=== PATIENT | female | born 1975 | race Caucasian/White ===

== ENCOUNTER 2022-11-01 01:17 | Outpatient (CLI) | payer OTHER, SELFPAY ==
--- NOTE | 2022-11-01 15:15 | DI.MAMMO_ITS ---
Exam(s) MAMMO SCREENING EXAM: MAMMO SCREENING CLINICAL HISTORY: WENDY, Z12.31, PREVENTATIVE EVALUTION Z01.419. TECHNIQUE: Bilateral full field digital CC and MLO mammographic images were obtained with 3D tomosyn thesis and utilizing computer aided detection (CAD). COMPARISON: Prior mammograms were reviewed. FINDINGS: No new significant radiograph findings in left breast. In the right breast there are 4 small asymmetric densities seen on the CC 3D images, the largest ava suring 5 x 4 mm. These are located approximately 6-7 cm in from nipple on CC view. Spot compression view and ultrasound recommended. There are no malignant-appearing microcalcification groups in either breast. There is no significant architectural distortion nor skin thickening-retraction. IMPRESSION: 1. No radiographic evidence of malignancy in left breast. 2. Four small nodular densities in the right breast as described above. Spot compression CC views an d ultrasound recommended. BI-RADS Category 0 - Assessment Incomplete: Need additional imaging evaluation Breast Density - Category C - Heterogeneously dense Breast density Category C or D implies that the patient has dense breast tissue. Dense breast tissue can make it harder to find cancer on a mammogram. Dense breast tissue is also associated with an incr eased risk of breast cancer. This information about the result of the mammogram report was provided to the patient to raise their awareness. Use this report when you speak with the patient about their risks for breast cancer, which includes their family history. At that time, you may recommend additional screening tests (Ultrasoun d or MRI) as these tests may add significant information. A negative radiographic report should not delay biopsy if a dominant or clinically suspicious mass is present. Up to ten percent of cancers are not identified on mammography. A negative report may reinforce clinical impression. Adenosis and dense breasts may obscure an underlying neoplasm. False positive reports average 6 to 10%. Patient will receive a letter notifying them of these results.
== END 2022-11-01 01:37 ==
PROVIDERS: Visit Provider Advanced Practice Midwife
DX: Z12.31 Encounter for screening mammogram for malignant neoplasm of breast (principal); Z01.419 Encounter for gynecological examination (general) (routine) without abnormal findings
CPT/HCPCS: 77063; 77067

== ENCOUNTER 2022-11-11 01:39 | Outpatient (CLI) | payer OTHER, SELFPAY ==
--- NOTE | 2022-11-11 | DI.US_ITS ---
Exam(s) MG MAMMO SCREEN CALL BACK UNI US BREAST RT COMPLETE EXAM: MG MAMMO SCREEN CALL BACK UNI and U/S breast RT complete CLINICAL HISTORY: F/U MAMMO, FOUR SMALL ASYMMETRIC DENSITIES RT BREAST. TECHNIQUE: Craniocaudal and mediolateral oblique Full Field Digital Mammography views of the right b reast with Computer Aided Diagnosis followed by Tomosynthesis and right breast ultrasound. COMPARISON: Comparison is made with prior examinations. FINDINGS: Mammography/Tomosynthesis: Masses/Architectural Distortion: The nodules in the posterior central right breast are less well defi stefanie on the additional views. No suspicious nodules or areas of architectural distortion are seen. Microcalcifictions: No suspicious pleomorphic-type are seen. Skin Thickening/Nipple Retraction: None. Complete right breast US: Echotexture: Normal appearance of the glandular tissue. Shadowing: No suspicious foci. Cyst: None. Solid lesions: None seen. Ductal dilation: None. IMPRESSION: 1. No definite evidence of malignancy is noted. 2. A six-month follow-up right mammogram is requested for re-evaluation. 3. The findings were discussed with the patient on the date of the examination. BI-RADS Category 3 - 6 month - Probably Benign Finding: Recommend follow-up imaging in 6 months Breast Density - Category C - Heterogeneously dense Breast density Category C or D implies that the patient has dense breast tissue. Dense breast tissue can make it harder to find cancer on a mammogram. Dense breast tissue is also associated with an incr eased risk of breast cancer. This information about the result of the mammogram report was provided to the patient to raise their awareness. Use this report when you speak with the patient about their risks for breast cancer, which includes their family history. At that time, you may recommend additional screening tests (Ultrasoun d or MRI) as these tests may add significant information. A negative radiographic report should not delay biopsy if a dominant or clinically suspicious mass is present. Up to ten percent of cancers are not identified on mammography. A negative report may reinforce clinical impression. Adenosis and dense breasts may obscure an underlying neoplasm. False positive reports average 6 to 10%. Patient will receive a letter notifying them of these results.
== END 2022-11-11 01:59 ==
PROVIDERS: Visit Provider Advanced Practice Midwife
DX: R92.8 Other abnormal and inconclusive findings on diagnostic imaging of breast (principal); Z12.31 Encounter for screening mammogram for malignant neoplasm of breast
CPT/HCPCS: 76642; 77063; 77067

== ENCOUNTER 2023-03-22 11:55 | Outpatient (REF) | payer OTHER, SELFPAY ==
--- NOTE | 2023-03-22 11:45 | SKI_PTH ---
PATIENT: Ly Arce LOC: [facility] U#:[id number] AGE/SX: 47/F ROOM: RE03/22/[address]: Haroon Montoya : 1975 BED: DIS: 03/22/2023 SPEC #: [id number] RECD: 03/22/23 13:03 STATUS: ELPIDIO REBassem #: [id number] CARRIE: 03/22/23 11:[address]: Haroon Montoya DEPT: Surgical Specimen RECD BY: Kavya Izaguirre ENTERED: 03/22/23 13:04 SP TYPE: RILEY MEEKS DR: Nydia Valente Tissues: 1 - SKIN BIOPSY(SHAVE/PUNCH) Procedures: IMMUNOPEROXIDASE STAIN SKIN LEVEL 4 Comments: [id number]
== END 2023-03-22 11:56 | disposition home or self-care (01) ==
LOC: LBN 11:55
PROVIDERS: PCP Internal Medicine; Referring Provider Student in an Organized Health Care Education/Training Program; Visit Provider Student in an Organized Health Care Education/Training Program
DX: D22.72 Melanocytic nevi of left lower limb, including hip (principal)
CPT/HCPCS: 88305; 88361

== ENCOUNTER 2023-11-15 07:38 | Outpatient (CLI) | payer OTHER, SELFPAY ==
[2023-11-15 08:07] LABS: Hemoglobin A1C 5.8 % (<5.7)
[2023-11-15 08:22] LABS: Calculated LDL 159 mg/dL (<100); Cholesterol 245 mg/dL (<200); HDL Cholesterol 67 mg/dL (40-60); TSH 3.14 uIU/Ml (0.36-3.74); Triglyceride 95 mg/dL (<150)
== END 2023-11-15 07:39 | disposition home or self-care (01) ==
LOC: LBO 07:39
PROVIDERS: PCP Internal Medicine; Visit Provider Advanced Practice Midwife
DX: Z13.220 Encounter for screening for lipoid disorders (principal); Z13.29 Encounter for screening for other suspected endocrine disorder
CPT/HCPCS: 36415; 80061; 83036; 84443

== ENCOUNTER → 2023-11-23 02:54 | Outpatient (CLI) | payer OTHER, SELFPAY ==
--- NOTE | 2023-11-23 | DI.MAMMO_ITS ---
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 COMPARISON: 2017 through 2022 FINDINGS: The breasts are composed of heterogeneously dense fibroglandular densities, Breast Density category C . No suspicious masses or suspicious microcalcifications are seen. No skin thickening or abnormal axillary lymph nodes are seen. There has been no significant change from prior exams. IMPRESSION: BI-RADS Category 1, Negative mammogram. Yearly screening mammography is recommended. Breast Density Category C, heterogeneously Dense. The mammogram demonstrates the patient's breast tissue is dense. Dense breast tissue is very common a nd is not abnormal but dense breast tissue can make it harder to find cancer on a mammogram. Also, de nse breast tissue may increase breast cancer risk. This information about the result of the mammogram report was provided to the patient to raise their awareness. Use this report when you speak with the patient about their risks for breast cancer, which includes their family history. At that time, you may recommend additional screening tests (Ultrasound or MRI) as they might be useful based on their r isk. A negative radiographic report should not delay biopsy if a dominant or clinically suspicious mass is present. Up to ten percent of cancers are not identified on mammography. A negative report may reinforce clinical impression. Adenosis and dense breasts may obscure an underlying neoplasm. False positive reports average 6 to 10%.
== END ==
PROVIDERS: PCP Internal Medicine; Visit Provider Advanced Practice Midwife
DX: Z12.31 Encounter for screening mammogram for malignant neoplasm of breast (principal); R92.323 Mammographic fibroglandular density, bilateral breasts
CPT/HCPCS: 77063; 77067

== ENCOUNTER 2024-05-08 01:40 | Outpatient (CLI) | payer OTHER, SELFPAY ==
[2024-05-08] MEDS: Gadoterate meglumine 20 ML VIAL 19 ML IVP (09:16)
[2024-05-08] MEDS: Normal Saline - Diluent 50 ML VIAL 25 ML IJ (09:17)
--- NOTE | 2024-05-08 10:00 | DI.MRI_ITS ---
Exam(s) MR ABDOMEN WO/W EXAM: MR ABDOMEN WO/W CLINICAL HISTORY: Subcapsular splenic lesion, D73.89, characterization prior to embolization TECHNIQUE: Multiplanar multisequence MRI of the Abdomen was performed. CONTRAST MATERIAL: IV Contrast: mL of Dotarem contrast administered. COMPARISON: CT CT ABDOMEN PELVIS W from 03/20/2024 FINDINGS: Exam somewhat limited by motion. Liver: Unremarkable. Pancreas: Unremarkable. Gallbladder and Bile Ducts: Unremarkable. Adrenals: Unremarkable. Kidneys: Unremarkable. Spleen: Normal size. 2 centimeter high T2 signal lesion at the medial border of the spleen, subcapsu lar location. The lesion is difficult to visualize on T1 weighted images. Postcontrast images show no hypervascularity. delayed images show filling with contrast. The findings likely represent a he mangioma. Aorta: Unremarkable. Soft Tissues: Unremarkable. Bone: Unremarkable. Lymph Nodes: Unremarkable. Lung bases: Unremarkable. Stomach and bowel: Unremarkable. Peritoneal cavity: Unremarkable. No evidence of ascites. Bowel: No evidence of obstruction. Appendix normal. IMPRESSION: 2 centimeter splenic lesion likely represents a hemangioma. It is not hypervascular. DATA REPOSITORY:
== END 2024-05-08 02:00 ==
PROVIDERS: PCP Internal Medicine; Visit Provider Student in an Organized Health Care Education/Training Program
DX: D73.89 Other diseases of spleen (principal)
CPT/HCPCS: 74183

== ENCOUNTER 2024-09-27 03:33 | Outpatient (CLI) | payer OTHER, SELFPAY ==
[2024-09-27 08:07] LABS: Hemoglobin A1C 5.6 % (<5.7)
[2024-09-27 08:43] LABS: Calculated LDL 157 mg/dL (<100); Cholesterol 241 mg/dL (<200); HDL Cholesterol 70 mg/dL (>or=50); TSH 3.58 uIU/mL (0.36-3.74); Triglyceride 72 mg/dL (<150)
== END 2024-09-27 03:34 | disposition home or self-care (01) ==
PROVIDERS: PCP Internal Medicine; Visit Provider Advanced Practice Midwife
DX: Z01.419 Encounter for gynecological examination (general) (routine) without abnormal findings (principal)
CPT/HCPCS: 36415; 80061; 83036; 84443

== ENCOUNTER 2024-11-27 01:05 | Outpatient (CLI) | payer OTHER, SELFPAY ==
--- NOTE | 2024-11-27 08:08 | DI.MAMMO_ITS ---
Exam(s) MAMMO SCREENING EXAM: MAMMO SCREENING CLINICAL HISTORY: SCREENING, Z12.31. TECHNIQUE: Bilateral full field digital CC and MLO mammographic images were obtained with 3D tomosyn thesis and utilizing computer aided detection (CAD). COMPARISON: Prior mammograms were reviewed. FINDINGS: There has been no significant change in the appearance and distribution of the fibroglandular tissue. Small benign-appearing microcalcification group in the left breast is unchanged from prior mammograms . There are no new spiculated masses nor new malignant appearing microcalcification groups. There is no significant architectural distortion nor skin thickening-retraction. IMPRESSION: Stable benign-appearing findings. No radiographic evidence of malignancy. BI-RADS Category 2 - Benign Findings Breast Density - Category C - The breast are heterogeneously dense, which may obscure small masses. Breast density Category C or D implies that the patient has dense breast tissue. Dense breast tissue can make it harder to find cancer on a mammogram. Dense breast tissue is also associated with an incr eased risk of breast cancer. This information about the result of the mammogram report was provided to the patient to raise their awareness. Use this report when you speak with the patient about their risks for breast cancer, which includes their family history. At that time, you may recommend additional screening tests (Ultrasoun d or MRI) as these tests may add significant information. A negative radiographic report should not delay biopsy if a dominant or clinically suspicious mass is present. Up to ten percent of cancers are not identified on mammography. A negative report may reinforce clinical impression. Adenosis and dense breasts may obscure an underlying neoplasm. False positive reports average 6 to 10%. Patient will receive a letter notifying them of these results.
== END 2024-11-27 01:25 ==
LOC: DI 01:05
PROVIDERS: PCP Internal Medicine; Visit Provider Advanced Practice Midwife
DX: Z12.31 Encounter for screening mammogram for malignant neoplasm of breast (principal); R92.333 Mammographic heterogeneous density, bilateral breasts; D24.2 Benign neoplasm of left breast
CPT/HCPCS: 77063; 77067

== ENCOUNTER 2025-06-03 08:07 | Day surgery (SDC) | payer OTHER, SELFPAY ==
[2025-06-03] VITALS (22 sets, daily range): BP systolic 121–191; BP diastolic 84–99; PULSE 59–91; RESP 12–24; TEMP 35.9–36.6; O2SAT 91–100; BMI 36.4
--- NOTE | 2025-06-03 08:19 | PDOC.DSDIS_ITS ---
Date of service: 06/03/25 Discharge Plan Disposition Patient Disposition: Home Condition: Good Discharge Details Reason For Visit: Endoscopic nasal polypectomy Attending Provider: Jean Paul Vazquez Primary Care Provider: Nydia Valente Home Meds and New Rx's Prescriptions: No Action estradiol 0.0375 mg/24 hr patch weekly 1 patch transdermal .weekly ibuprofen [Advil] 200 mg tablet 600 mg PO Q8H PRN multivitamin Tablet 1 tab PO DAILY Discharge Instructions Additional Instructions: My cell phone number is [phone]. Please call with any questions or concerns. If you are unable to reach me and you feel it is an emergency, please proceed to the emergency room or call 911. Stand Alone Forms: [facility]NT[facility] Instr. George, Fawad Information Referrals: Jean Paul Vazquez MD [ [facility] STAFF PHYSICIAN, ENT Surgical] Referral Note: 1 month, please call for appointment prior to patient's departure if this is not already scheduled Discharge Orders Discharge Orders: Discharge Order (Routine); Ordered 06/03/25 Ordered By: Jean Paul Vazquez
--- NOTE | 2025-06-03 08:21 | ROE_ITS ---
Operative Note Operative Note PRE-OP DIAGNOSIS: Bilateral intranasal polyposis POST-OP DIAGNOSIS: same PROCEDURE: Endoscopic intranasal polypectomy, bilateral SURGEON: Jean Paul Vazquez ANESTHESIA TYPE: General LMA/ETT Refer to Anesthesia Record ESTIMATED BLOOD LOSS: 1 PATHOLOGY: other (Bilateral polyp biopsies) COMPLICATIONS: None Patient was transported to: PACU Patient's condition: stable Indications: The patient has bilateral intranasal polyposis. This has failed to respond to medical treatment. Options were explained to the patient regarding further management. She elected to undergo the above procedure. Consent was filled out and signed prior to the procedure. All questions were answered prior to the procedure. H&P was reviewed. There have been no changes Findings: Bilateral isolated nasal polyps emerging from the anterior tips of the middle turbinates. No other intranasal masses or lesions. These are translucent in nature. Procedure Description: After obtaining an adequate level of general endotracheal anesthesia the patient was positioned in the supine position and prepped and draped in appropriate fashion. 1% lidocaine with 1/100,000 epinephrine was injected into the inferior turbinates and middle turbinates as well as the polyps bilaterally. Cocaine soaked nasal pledgets were placed into the nasal cavity up against the polyps and left for 5 minutes. Following this, the nasal pledgets were removed and a StraightShot microdebrider with a 3 mm Tricut blade and a 0 degree endoscope wer e used to perform the following. First, samples of both polyps were removed and sent to pathology. The Tricut StraightShot was then used to carefully debride the polyps down to the base. Once this been done bilaterally, thorough examination of the nasal cavity was performed revealing no other polyps within the nasal cavity and no other masses. The nasopharynx was also examined revealing no polyposis. After ensuring adequate hemostasis, the patient was awakened and explained by anesthesia and taken recovery room in stable condition. I was present throughout the entire case. Date of Procedure: 06/03/25
--- NOTE | 2025-06-03 08:27 | W.PM.DSUDISC ---
Date of service: 06/03/25 Discharge Plan Disposition Patient Disposition: Home Condition: Good Discharge Details Reason For Visit: Endoscopic nasal polypectomy Attending Provider: Jean Paul Vazquez Primary Care Provider: Nydia Valente Home Meds and New Rx's Prescriptions: New cephalexin 500 mg capsule 500 mg PO TID Qty: 21 0RF No Action estradiol 0.0375 mg/24 hr patch weekly 1 patch transdermal .weekly ibuprofen [Advil] 200 mg tablet 600 mg PO Q8H PRN multivitamin Tablet 1 tab PO DAILY Discharge Instructions Additional Instructions: My cell phone number is [phone]. Please call with any questions or concerns. If you are unable to reach me and you feel it is an emergency, please proceed to the emergency room or call 911. Stand Alone Forms: ENT-FESS Instr. George, Fawad Information Referrals: Jean Paul Vazquez MD [ [facility] STAFF PHYSICIAN, ENT Surgical] Referral Note: 1 month, please call for appointment prior to patient's departure if this is not already scheduled Discharge Orders Discharge Orders: Discharge Order (Routine); Ordered 06/03/25 Ordered By: Jean Paul Vazquez
--- NOTE | 2025-06-03 08:29 | ANES.PREOP_ITS ---
General Info Date of Service Date Performed: 06/03/25 Height: 5 ft 3 in Weight: 93.3 kg Body Mass Index (BMI): 36.4 Surgical Procedure: Operation Date: 06/03/25 09:25 Proposed Procedure Side Surgeon p Endoscopic Sinus Surgery w/Polypectomy Jean Paul Vazquez MD Actual Procedure Side Surgeon p Endoscopic Sinus Surgery w/Polypectomy Bilateral Jean Paul Vazquez MD Pre-Op Diagnosis Post-Op Diagnosis Bilateral symptomatic nasal polyps Meds Allergies and Home Medications Allergies Allergy/AdvReac Type Severity Reaction Status Date / Time No Known Allergies Allergy Verified 06/03/25 08:15 Home Medication ?Medication ?Instructions ?Recorded estradiol 0.0375 mg/24 hr weekly 1 patch transdermal . weekly 02/10/24 transdermal patch ibuprofen 200 mg tablet (Advil) 600 mg PO Q8H PRN 01/25 12/18 multivitamin 1 tab PO DAILY 05/30/25 cephalexin 500 mg capsule 500 mg PO TID #21 caps 06/03 Current Visit Medications: Current Medications Generic Name Dose Route Start Last Admin Trade Name Freq PRN Reason Stop Dose Admin Acetaminophen 320 - 650 mg 06/03/25 08:19 Acetaminophen Solution 650 Mg/20.3 Ml Cup PO 07/03/25 08:18 Q4H PRN PRN Ringer's Solution 1,000 mls @ 50 mls/hr 06/03/25 06:00 IV 06/30/25 23:59 INFUSION JUSTIN Cefazolin Sodium/Dextrose 2 gm in 50 mls @ 100 mls/hr 06/03/25 06:00 Ancef Duplex IVPB 06/30/25 23:59 PREOP JUSTIN Tranexamic Acid 900 mg/ Sodium 100 mls @ 600 mls/hr 06/03/25 06:00 Chloride IVPB 06/03/25 23:59 PREOP JUSTIN Ibuprofen 600 mg 06/03/25 08:19 Ibuprofen 600 Mg Tab PO 07/03/25 08:18 Q6H PRN PRN Sodium Chloride 0 ml 06/03/25 06:00 Normal Saline Flush 10 Ml Syr IV 06/30/25 23:59 PRN PRN Sodium Chloride 0 ml 06/03/25 06:00 Normal Saline 10 Ml Vial IJ 06/30/25 23:59 DIRECTED PRN Sterile Water 0 ml 06/03/25 06:00 Water,Injection,Sterile 10 Ml Vial IJ 06/30/25 23:59 DIRECTED PRN PFSH Active Problems Active Problems: Problem Status Onset Code Nasal polyps Acute J33.9 Chronic sinusitis Acute J32.9 Sinusitis with nasal polyps Acute J32.9, J33.9 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 Left lateral abdominal pain Acute R10.9 Skin lesion Acute L98.9 Medical History Medical History Hemangioma clip on hemangioma Exercise-induced asthma History of gastroscopy Surgical History Surgical History Hx of colonoscopy Hx of tonsillectomy Hx of tubal ligation Hx of hysterectomy Tobacco Smoking/Tobacco Use Status: Former Tobacco Use Passive smoking exposure: No Alcohol Alcohol Intake: current Alcohol intake frequency: a few times a week Alcohol type: wine Substance Use Substance use: Never Substance use type: does not use Vital Signs and Lab Results Vital Signs Most Recent Vital Signs in EMR: Most Recent Vital Signs Temp Pulse Resp BP Pulse Ox 36.2 C L 65 16 191/99 H 99 06/03/25 08:16 06/03/25 08:16 06/03/25 08:16 06/03/25 08:16 06/03/25 08:16 Anesthesia Assessment and Plan Anesthesia History Personal History: PONV Family History: No Family History of Anesthesia Complications Exercise Tolerance Exercise Tolerance: Metabolic Equivalents>4 Pertinent Negatives Pertinent Negatives: No Symptoms of GERD, No Major Cardiovascular Symptoms or Complaints, No Major Pulmonary Symptoms or Complaints and No History of CVA/TIA Cardiac & Pulmonary Exam Cardiac Exam: Normal S1/S2 Heart Sounds Pulmonary Exam: Clear Bilateral Breath Sounds Implantable Cardiac Device Does patient have a Pacemaker or an ICD?: No Airway Exam Known Difficult Airway: No Mallampati Class: 2 Mouth Opening: Normal (> 3cm) Thyromental Distance: Greater than 3 cm Neck Range of Motion: Full ROM Neck Circumference: Normal Teeth Condition: Normal Dentition ASA Classification ASA Score: ASA 2 Emergency Case?: No NPO Status NPO Status: NPO Clears >2 hours, Solids >8 hours Status Status: History of Hysterectomy Anesthesia Plan Resuscitation Status: Full Code Anesthesia Technique: General Anesthesia Airway Planned: Endotracheal Tube Monitors Used: Standard Monitors
[2025-06-03] MEDS: Lactated Ringers 1,000 ML 50 ML IV (08:37)
[2025-06-03] MEDS: Scopolamine 1 MG/3 DAYS PATCH TD (08:51)
[2025-06-03] MEDS: ceFAZolin 2 GM/50 ML BAG IVPB (09:07)
[2025-06-03] MEDS: TRANEXAMIC ACID IVPB (09:13)
[2025-06-03] MEDS: NORMAL SALINE IVPB (09:13)
--- NOTE | 2025-06-03 09:16 | NASALBX_PTH ---
PATIENT: Ly Arce LOC: [facility] U#:[id number] AGE/SX: 49/F ROOM: RE06/03/[address]: Jean Paul Vazquez MD : 1975 BED: DIS: 06/03/2025 SPEC #: [id number] RECD: 06/03/25 12:53 STATUS: ELPIDIO REBassem #: [id number] CARRIE: 06/03/25 09:[address]: Jean Paul Vazquez DEPT: Surgical Specimen RECD BY: Kavya Izaguirre ENTERED: 06/03/25 12:54 SP TYPE: NASALBX OTHR DR: Nydia Valente Tissues: 1 - MUCOSA, NOS 2 - MUCOSA, NOS Procedures: GROSS AND MICRO LEVEL 4 Comments: [id number]
[2025-06-03] MEDS: Lidocaine 1% Pres-Free W/EPI 1/200,000 10 ML VIAL (09:19)
[2025-06-03] MEDS: Cocaine Nasal 4% 4 ML BTL (09:19)
--- NOTE | 2025-06-03 10:32 | W.ANESPOSTOP ---
Postoperative Evaluation Date, Time and Location Date Performed: 06/03/25 Time Performed: 10:32 Patient Location: Day Surgery Unit Vital Signs Most Recent Imported Vital Signs: Most Recent Vital Signs Temp Pulse Resp BP Pulse Ox 35.9 C L 68 16 131/93 H 94 06/03/25 10:22 06/03/25 10:22 06/03/25 10:22 06/03/25 10:22 06/03/25 10:22 Pain Score Most Recent Pain Score: Most Recent Pain Score Pain Level 0 06/03/25 10:22 Assessment Mental Status: Awake (Alert & Oriented to Patient Baseline) Airway and Respiratory Function: Patent airway with normal (patient baseline) respiratory exam Cardiovascular Function: Hemodynamically Stable Hydration Status: Adequately Hydrated Nausea & Vomiting: No Nausea or Vomiting Pain: Pain is tolerable per patient Peripheral Nerve Block: Patient did not receive a nerve block
== END 2025-06-03 11:08 | disposition home or self-care (01) ==
PROVIDERS: PCP Internal Medicine; Visit Provider Otolaryngology
PROC: (CPT 31237; principal; 2025-06-03 09:15)
DX: J33.9 Nasal polyp, unspecified (principal); J32.9 Chronic sinusitis, unspecified
CPT/HCPCS: 31237; 88305; J0690; J1100; J2003; J2004; J2250; J2405; J2704; J3010